=== PATIENT | female | born 1960 | race Caucasian/White ===

== ENCOUNTER 2025-03-01 23:29 | Emergency (ER) | payer MEDICAID ==
[~2025-03-01] VITALS: Ht 154.9 cm; Wt 57.0 kg
[~2025-03-01 23:29] MED LIST: ASPI-1497 MT; ATOR20TA65 MT; CARV6.2548 MT; FURO-151 MT; INSU100I24 SQ; NITR100C MT
[2025-03-01 23:40] VITALS: O2SAT 98
[2025-03-02 00:28] LABS: CREATININE 0.9 mg/dL (0.6-1.0)
[2025-03-02 00:29] LABS: UREA NITROGEN BLOOD 7 mg/dL (9-23)
[2025-03-02 00:30] LABS: ASPARTATE AMINOTRANSFERASE 30 IU/L (<34)
[2025-03-02 00:31] LABS: BILIRUBIN DIRECT 0.4 mg/dL (<=3.0); BILIRUBIN TOTAL 0.8 mg/dL (0.1-1.0); PROTEIN TOTAL 6.4 g/dL (6.0-8.3)
[2025-03-02 00:37] LABS: BASOPHILS % 0.3 % (0.0-2.0); EOSINOPHILS % 0.2 % (0.0-5.0); HEMATOCRIT. 37.1 % (36.0-48.0); HEMOGLOBIN. 11.7 g/dL (12.0-16.0); LYMPHOCYTES % 21.1 % (20.0-50.0); MEAN PLATELET VOLUME 8.2 fl (7.4-10.4); MONOCYTES % 4.1 % (2.0-8.0); NEUTROPHILS % 74.3 % (40.0-76.0); PLATELET 140 x1000/uL (130-400); RED BLOOD CELL COUNT 3.45 mill/uL (4.2-5.4); RED CELL DISTRIBUTION WIDTH 17.1 % (11.6-14.6)
[2025-03-02] MEDS: ACETAMINOPHEN 1000MG/100ML 100 ML IV NR (01:49)
[2025-03-02] MEDS: POLYETHYLENE GLYCOL 3350 (17GM) 1 DOSE PACK PO NR (03:14)
[2025-03-02] MEDS ORDERED: ACET-2708 MT (03:22)
[2025-03-02] MEDS ORDERED: POLY17PO3 MT (03:22)
[2025-03-02] MEDS: POTASSIUM CHLORIDE 8 MEQ TABLET SR PO NR (04:26)
[2025-03-02 10:05] VITALS: BP 110/75; PULSE 90; RESP 18; TEMP 36.7; O2SAT 100
== END 2025-03-02 10:06 | disposition home or self-care (01) ==
LOC: ER 23:29 → CANBEDREQ 03-02 09:48 → ER 03-02 10:06
DX: K59.00 Constipation, unspecified (principal); E87.6 Hypokalemia; E11.22 Type 2 diabetes mellitus with diabetic chronic kidney disease; E11.51 Type 2 diabetes mellitus with diabetic peripheral angiopathy without gangrene; E78.00 Pure hypercholesterolemia, unspecified; N18.6 End stage renal disease; I25.10 Atherosclerotic heart disease of native coronary artery without angina pectoris; Z99.2 Dependence on renal dialysis; Z89.429 Acquired absence of other toe(s), unspecified side; Z79.899 Other long term (current) drug therapy; Z79.82 Long term (current) use of aspirin
CPT/HCPCS: 80076; 80048; 80320; 83605; 83690; 85025; 87040; 36415; 84145; 99285; 74176; 96365; Z7610 ×2; G0480; J0131

== ENCOUNTER 2025-03-14 20:09 | Inpatient (IN) | payer MEDICAID ==
[~2025-03-14] VITALS: Ht 162.6 cm; Wt 65.8 kg
[~2025-03-14 20:09] MED LIST changes: +ACET-2708 MT; +POLY17PO3 MT
[2025-03-14 20:21] VITALS: O2SAT 99
[2025-03-14] MEDS: MORPHINE SULFATE 4 MG/ML INJ (FOR IV/IM USE) IV ONE (22:31)
[2025-03-14 23:17] LABS: BASOPHILS % 0.2 % (0.0-2.0); EOSINOPHILS % 0.2 % (0.0-5.0); HEMATOCRIT. 38.3 % (36.0-48.0); HEMOGLOBIN. 12.0 g/dL (12.0-16.0); LYMPHOCYTES % 26.9 % (20.0-50.0); MEAN PLATELET VOLUME 9.2 fl (7.4-10.4); MONOCYTES % 4.8 % (2.0-8.0); NEUTROPHILS % 67.9 % (40.0-76.0); PLATELET 98 x1000/uL (130-400); RED BLOOD CELL COUNT 3.47 mill/uL (4.2-5.4); RED CELL DISTRIBUTION WIDTH 16.6 % (11.6-14.6)
[2025-03-14 23:25] LABS: ADD RBC MORPHOLOGY YES
[2025-03-14 23:30] LABS: CREATININE 1.1 mg/dL (0.6-1.0)
[2025-03-14 23:31] LABS: UREA NITROGEN BLOOD 10 mg/dL (9-23)
[2025-03-14 23:32] LABS: ASPARTATE AMINOTRANSFERASE 18 IU/L (<34)
[2025-03-14 23:33] LABS: BILIRUBIN DIRECT 0.3 mg/dL (<=3.0); BILIRUBIN TOTAL 0.6 mg/dL (0.1-1.0); PROTEIN TOTAL 5.4 g/dL (6.0-8.3)
[2025-03-15] VITALS (11 sets, daily range): BP systolic 100–111; BP diastolic 48–73; PULSE 67–92; RESP 16–20; TEMP 36.1–36.8; O2SAT 98–100
[2025-03-15] MEDS ORDERED: ZOLPIDEM TARTRATE 5MG TABLET PO PRN
[2025-03-15] MEDS ORDERED: MAGNESIUM/ALUMINUM HYDROXIDE/SIMETHICONE 30ML UDC PO PRN
[2025-03-15] MEDS ORDERED: ACETAMINOPHEN 325MG TABLET PO PRN
[2025-03-15 00:59] LABS: PLATELET ESTIMATE SLIGHTLY DECREASED
[2025-03-15] MEDS: DEXTROSE 50% WATER 50ML SYRINGE IV ONE (02:03)
[2025-03-15] MEDS: PIPERACILLIN/TAZO 3.375G/50ML 50 ML IV SCH ×2 (03:49→19:13)
[2025-03-15] MEDS: BLOOD SUGAR DIAGNOSTIC STRIP TEST SCH (06:45)
[2025-03-15 07:09] LABS: BASOPHILS % 0.2 % (0.0-2.0); EOSINOPHILS % 0.4 % (0.0-5.0); HEMATOCRIT. 38.9 % (36.0-48.0); HEMOGLOBIN. 12.3 g/dL (12.0-16.0); LYMPHOCYTES % 33.7 % (20.0-50.0); MEAN PLATELET VOLUME 8.9 fl (7.4-10.4); MONOCYTES % 4.7 % (2.0-8.0); NEUTROPHILS % 61.0 % (40.0-76.0); PLATELET 99 x1000/uL (130-400); RED BLOOD CELL COUNT 3.54 mill/uL (4.2-5.4); RED CELL DISTRIBUTION WIDTH 16.8 % (11.6-14.6)
[2025-03-15] MEDS: INSULIN LISPRO 100 UNITS/ML SUBCUT SCH (07:15)
[2025-03-15] MEDS: PANTOPRAZOLE SODIUM 40 MG/VIAL IV SCH (08:17)
[2025-03-15] MEDS: FUROSEMIDE 40MG TABLET PO SCH (08:18)
[2025-03-15] MEDS: CARVEDILOL 6.25 MG TABLET PO SCH (08:24)
[2025-03-15] MEDS: ATORVASTATIN CALCIUM 20MG TABLET PO SCH (08:26)
[2025-03-15] MEDS ORDERED: ENOXAPARIN 40MG/0.4ML SYR SUBCUT SCH (09:00)
[2025-03-15] MEDS: FUROSEMIDE 40MG/4ML VIAL IVP SCH (11:30)
[2025-03-15] MEDS: ASPIRIN 81MG TABLET PO NR (12:15)
[2025-03-15] MEDS: NYSTATIN/TRIAMCIN CREAM 15GM TOP SCH (15:32)
[2025-03-15] MEDS: HYDROCODONE/ACETAMINOPHEN 5/325MG TABLET PO PRN (15:35)
[2025-03-15] MEDS ORDERED: PATIENT'S OWN MEDICATION PO SCH (16:00)
[2025-03-16] VITALS: BP 108/70; PULSE 94; RESP 16; TEMP 36.6; O2SAT 100
[2025-03-16 04:00] VITALS: BP 110/73; PULSE 92; RESP 16; TEMP 35.7; O2SAT 100
[2025-03-16 06:39] LABS: BASOPHILS % 0.3 % (0.0-2.0); EOSINOPHILS % 0.9 % (0.0-5.0); HEMATOCRIT. 34.9 % (36.0-48.0); HEMOGLOBIN. 11.2 g/dL (12.0-16.0); LYMPHOCYTES % 20.2 % (20.0-50.0); MEAN PLATELET VOLUME 8.4 fl (7.4-10.4); MONOCYTES % 3.7 % (2.0-8.0); NEUTROPHILS % 74.9 % (40.0-76.0); PLATELET 100 x1000/uL (130-400); RED BLOOD CELL COUNT 3.24 mill/uL (4.2-5.4); RED CELL DISTRIBUTION WIDTH 16.1 % (11.6-14.6)
[2025-03-16 08:00] VITALS: RESP 16; O2SAT 99
[2025-03-16] MEDS ORDERED: ASPIRIN 81MG TABLET PO SCH (09:00)
[2025-03-16 10:57] LABS: BASOPHILS % 0.5 % (0.0-2.0); EOSINOPHILS % 0.7 % (0.0-5.0); HEMATOCRIT. 36.4 % (36.0-48.0); HEMOGLOBIN. 11.4 g/dL (12.0-16.0); LYMPHOCYTES % 19.2 % (20.0-50.0); MEAN PLATELET VOLUME 8.3 fl (7.4-10.4); MONOCYTES % 3.5 % (2.0-8.0); NEUTROPHILS % 76.1 % (40.0-76.0); PLATELET 104 x1000/uL (130-400); RED BLOOD CELL COUNT 3.32 mill/uL (4.2-5.4); RED CELL DISTRIBUTION WIDTH 16.4 % (11.6-14.6)
[2025-03-16 11:07] LABS: INR 1.1
[2025-03-16 11:10] LABS: CREATININE 1.0 mg/dL (0.6-1.0); UREA NITROGEN BLOOD 10.0 mg/dL (9-23)
[2025-03-16 20:00] VITALS: BP 109/68; PULSE 94; RESP 18; TEMP 36.2; O2SAT 100
[2025-03-16] MEDS: ATORVASTATIN CALCIUM 20MG TABLET PO SCH (21:39)
[2025-03-17] VITALS: BP 112/72; PULSE 84; RESP 16; TEMP 36.9; O2SAT 100
[2025-03-17 04:00] VITALS: BP 106/68; PULSE 73; RESP 18; TEMP 36.1; O2SAT 99
[2025-03-17 07:22] LABS: BASOPHILS % 0.5 % (0.0-2.0); EOSINOPHILS % 1.1 % (0.0-5.0); HEMATOCRIT. 34.8 % (36.0-48.0); HEMOGLOBIN. 10.9 g/dL (12.0-16.0); LYMPHOCYTES % 23.3 % (20.0-50.0); MEAN PLATELET VOLUME 8.6 fl (7.4-10.4); MONOCYTES % 3.6 % (2.0-8.0); NEUTROPHILS % 71.5 % (40.0-76.0); PLATELET 98 x1000/uL (130-400); RED BLOOD CELL COUNT 3.19 mill/uL (4.2-5.4); RED CELL DISTRIBUTION WIDTH 16.6 % (11.6-14.6)
[2025-03-17 07:27] LABS: INR 1.1
[2025-03-17 08:00] VITALS: BP 109/67; PULSE 84; RESP 15; TEMP 36.2; O2SAT 99
[2025-03-17] MEDS: MORPHINE SULFATE 4 MG/ML INJ (FOR IV/IM USE) IV PRN (10:31)
[2025-03-17] MEDS: ONDANSETRON HCL 4MG/2ML INJ IV PRN (10:49)
[2025-03-17 12:00] VITALS: BP 86/54; PULSE 89; RESP 16; TEMP 35.8; O2SAT 99
[2025-03-17 12:18] LABS: PROTEIN BODY FLUID < 2.0 gm/dL
[2025-03-17 12:59] LABS: BODY FLUID RBC 1 /cu mm (0-2000); BODY FLUID WBC 2 /cu mm (0-200)
[2025-03-17 16:00] VITALS: BP 103/65; PULSE 100; RESP 18; TEMP 35.8; O2SAT 97
[2025-03-17 20:00] VITALS: BP 114/70; PULSE 87; RESP 16; TEMP 36.4; O2SAT 98
[2025-03-17] MEDS: ENOXAPARIN 40MG/0.4ML SYR SUBCUT SCH (21:58)
[2025-03-18] VITALS (14 sets, daily range): BP systolic 90–105; BP diastolic 59–81; PULSE 68–83; RESP 10–17; TEMP 36.2–36.7; O2SAT 97–100
[2025-03-18] MEDS ORDERED: HEPARIN 1000 UNITS/ML 10ML ONE (08:50)
[2025-03-18] MEDS ORDERED: VERAPAMIL HCL 2.5 MG/1 ML 2ML VIAL IV ONE (08:50)
[2025-03-18] MEDS ORDERED: IODIXANOL 320MG/ML 100 ML BOTTLE IV ONE (08:50)
[2025-03-18] MEDS ORDERED: LIDOCAINE HCL 1% 20ML VIAL ONE (08:50)
[2025-03-18] MEDS: ASPIRIN 81MG TABLET PO SCH (09:00)
[2025-03-18] MEDS ORDERED: FENTANYL CITRATE/PF 50MCG/ML 2ML VIAL ONE (09:17)
[2025-03-18] MEDS ORDERED: DIPHENHYDRAMINE 50MG/ML VIAL ONE (09:17)
[2025-03-18] MEDS ORDERED: MIDAZOLAM HCL 2 MG/2 ML VIAL ONE (09:17)
[2025-03-18] MEDS ORDERED: ATOR20TA65 MT (09:44)
[2025-03-18] MEDS ORDERED: CARV6.2548 MT (09:44)
[2025-03-18] MEDS ORDERED: FURO-151 MT (09:44)
[2025-03-18] MEDS ORDERED: ASPI-1497 MT (09:44)
[2025-03-18] MEDS ORDERED: POLY17PO3 MT (09:44)
[2025-03-18] MEDS ORDERED: ATROPINE SULFATE 1MG/10ML SYR IV PRN (10:30)
[2025-03-18] MEDS ORDERED: NALOXONE HCL 0.4MG/ML VIAL IV PRN (10:30)
[2025-03-18] MEDS: ALBUMIN HUMAN 12.5GM/50ML (25%) IV SCH (14:23)
[2025-03-19] VITALS: PULSE 80; RESP 20; TEMP 36.6; O2SAT 100
[2025-03-19 04:00] VITALS: BP 101/74; PULSE 75; RESP 18; TEMP 36.6; O2SAT 100
[2025-03-19 07:21] LABS: BASOPHILS % 0.2 % (0.0-2.0); EOSINOPHILS % 0.1 % (0.0-5.0); HEMATOCRIT. 34.6 % (36.0-48.0); HEMOGLOBIN. 10.8 g/dL (12.0-16.0); LYMPHOCYTES % 18.8 % (20.0-50.0); MEAN PLATELET VOLUME 9.1 fl (7.4-10.4); MONOCYTES % 2.9 % (2.0-8.0); NEUTROPHILS % 78.0 % (40.0-76.0); PLATELET 79 x1000/uL (130-400); RED BLOOD CELL COUNT 3.10 mill/uL (4.2-5.4); RED CELL DISTRIBUTION WIDTH 16.7 % (11.6-14.6)
[2025-03-19 07:29] LABS: UREA NITROGEN BLOOD 16.0 mg/dL (9-23)
[2025-03-19 07:31] LABS: ADD RBC MORPHOLOGY NO
[2025-03-19 07:48] LABS: CREATININE 1.5 mg/dL (0.6-1.0)
[2025-03-19 08:00] VITALS: BP 98/69; PULSE 76; RESP 16; TEMP 36.4; O2SAT 100
[2025-03-19] MEDS: ACETAMINOPHEN 325MG TABLET PO PRN (09:36)
[2025-03-19 12:00] VITALS: BP 91/73; PULSE 65; RESP 13; TEMP 36.6; O2SAT 100
[2025-03-19 16:00] VITALS: BP 88/69; PULSE 71; RESP 13; TEMP 36.8; O2SAT 94
[2025-03-19] MEDS ORDERED: SODIUM CHLORIDE 0.9% 500 ML IV NR (16:03)
[2025-03-19] MEDS ORDERED: MIDODRINE HCL 5MG TABLET PO SCH (16:15)
[2025-03-19] MEDS: MIDODRINE HCL 5MG TABLET PO SCH (16:18)
[2025-03-19] MEDS: CLONIDINE 0.1MG TABLET PO PRN (16:56)
[2025-03-19 20:00] VITALS: BP 96/70; PULSE 76; RESP 18; TEMP 36.7; O2SAT 97
[2025-03-20] VITALS (14 sets, daily range): BP systolic 96–138; BP diastolic 58–78; PULSE 65–82; RESP 13–21; TEMP 36.22512–37.1; O2SAT 98–99
[2025-03-20] MEDS ORDERED: MIDO10TA3 PO (13:42)
[2025-03-20 14:30] LABS: HEPATITIS A AB IGM NEGATIVE (Negative); HEPATITIS B CORE AB IGM NEGATIVE (Negative)
[2025-03-20 14:31] LABS: HEPATITIS C AB NON REACTIVE (Neg) (Negative)
[2025-03-20] MEDS: DEXTROSE 50% WATER 50ML SYRINGE IV PRN (15:07)
[2025-03-20] MEDS: LACTULOSE 20G/30ML UDC PO NR (15:10)
[2025-03-20] MEDS: HYDROCODONE/ACETAMINOPHEN 10/325MG TABLET PO PRN (15:11)
[2025-03-20] MEDS ORDERED: CEFEPIME 1GM IN DEXT 5% 50ML IV SCH (21:00)
[2025-03-21] VITALS (9 sets, daily range): BP systolic 89–122; BP diastolic 60–86; PULSE 65–76; RESP 10–20; TEMP 36.2–36.8; O2SAT 84–100
[2025-03-21] MEDS: CEFEPIME 2GM PREMIX 100ML IV SCH (00:48)
[2025-03-21] MEDS: VANCOMYCIN 1.25GM/250ML IV SCH (00:49)
[2025-03-21 06:54] LABS: CREATININE 1.7 mg/dL (0.6-1.0); UREA NITROGEN BLOOD 14.0 mg/dL (9-23)
[2025-03-21] MEDS ORDERED: VANCOMYCIN 750MG/150ML (BAXTER) IV SCH (21:00)
[2025-03-21] MEDS: CEFEPIME 1GM PREMIX 50ML IV SCH (22:23)
[2025-03-22] VITALS (16 sets, daily range): BP systolic 75–136; BP diastolic 55–94; PULSE 20–106; RESP 10–24; TEMP 36.3–36.7; O2SAT 94–100
[2025-03-22] MEDS: IOHEXOL-350 100 ML BOTTLE ONE (08:42)
[2025-03-22 18:45] LABS: BASOPHILS % 0.3 % (0.0-2.0); EOSINOPHILS % 0.1 % (0.0-5.0); HEMATOCRIT. 28.7 % (36.0-48.0); HEMOGLOBIN. 8.9 g/dL (12.0-16.0); LYMPHOCYTES % 12.5 % (20.0-50.0); MEAN PLATELET VOLUME 8.7 fl (7.4-10.4); MONOCYTES % 3.8 % (2.0-8.0); NEUTROPHILS % 83.3 % (40.0-76.0); PLATELET 109 x1000/uL (130-400); RED BLOOD CELL COUNT 2.52 mill/uL (4.2-5.4); RED CELL DISTRIBUTION WIDTH 17.4 % (11.6-14.6)
[2025-03-22 19:06] LABS: CREATININE 1.9 mg/dL (0.6-1.0); UREA NITROGEN BLOOD 19.0 mg/dL (9-23)
[2025-03-22] MEDS: VANCOMYCIN 500MG/100ML IV SCH (21:30)
[2025-03-23] VITALS (7 sets, daily range): BP systolic 103–132; BP diastolic 68–94; PULSE 72–102; RESP 16–23; TEMP 36.3–36.8; O2SAT 95–100
[2025-03-23] MEDS: EPOETIN ALFA-EPBX 4,000 UNITS/ML VIAL SUBCUT SCH (21:52)
[2025-03-24] VITALS: BP 112/73; PULSE 92; RESP 16; TEMP 36.8; O2SAT 97
[2025-03-24 04:00] VITALS: BP 110/70; PULSE 80; RESP 8; TEMP 36.3; O2SAT 95
[2025-03-24 08:00] VITALS: BP 93/57; PULSE 91; RESP 21; TEMP 36.4; O2SAT 100
[2025-03-24 12:00] VITALS: BP 110/73; PULSE 96; RESP 24; TEMP 36.5; O2SAT 100
[2025-03-24 12:08] LABS: BASOPHILS % 0.2 % (0.0-2.0); EOSINOPHILS % 0.2 % (0.0-5.0); HEMATOCRIT. 25.7 % (36.0-48.0); HEMOGLOBIN. 8.3 g/dL (12.0-16.0); LYMPHOCYTES % 14.1 % (20.0-50.0); MEAN PLATELET VOLUME 7.8 fl (7.4-10.4); MONOCYTES % 3.3 % (2.0-8.0); NEUTROPHILS % 82.2 % (40.0-76.0); PLATELET 125 x1000/uL (130-400); RED BLOOD CELL COUNT 2.36 mill/uL (4.2-5.4); RED CELL DISTRIBUTION WIDTH 16.6 % (11.6-14.6)
[2025-03-24 12:23] LABS: CREATININE 1.6 mg/dL (0.6-1.0); UREA NITROGEN BLOOD 23.0 mg/dL (9-23)
[2025-03-24] MEDS: HYDROCODONE/ACETAMINOPHEN 10/325MG TABLET PO PRN (14:43)
[2025-03-24] MEDS ORDERED: NALOXONE HCL 0.4MG/ML VIAL IV PRN (14:45)
[2025-03-24 16:00] VITALS: BP 101/67; PULSE 108; RESP 29; TEMP 36.4; O2SAT 98
[2025-03-24 20:00] VITALS: BP 106/75; PULSE 102; RESP 18; TEMP 36.6; O2SAT 100
[2025-03-24] MEDS: VANCOMYCIN 500MG/100ML IV SCH (21:50)
[2025-03-25] VITALS (57 sets, daily range): BP systolic 41–139; BP diastolic 19–127; PULSE 47–155; RESP 14–51; TEMP 36.22512–36.7; O2SAT 94–100
[2025-03-25] MEDS: ASCORBIC ACID 500 MG TABLET PO SCH (09:00)
[2025-03-25] MEDS: FOLIC ACID/VITAMIN B COMP W-C TABLET PO SCH (09:00)
[2025-03-25] MEDS: ENOXAPARIN 30MG/0.3ML SYR SUBCUT SCH (09:00)
[2025-03-25] MEDS ORDERED: ACETAMINOPHEN 650MG SUPP PR PRN (11:00)
[2025-03-25] MEDS ORDERED: ACETAMINOPHEN 650MG/20.3ML UDC NG PRN (11:00)
[2025-03-25] MEDS: NOREPINEPHRINE 32 MG in DEXT 5% WATER 218 ML IV PRN (11:36)
[2025-03-25 12:15] LABS: BG BASE EXCESS -6.0 mmol/L (-2.0-3.0); BG CARBOXYHEMOGLOBIN 0.3 % (0.5-1.5); BG DEOXYHEMOGLOBIN 0.3 % (0.0-5.0); BG FRACTION INSPIRED OXYGEN 100; BG HCO3 ACT 20.6 mmol/L (21.0-28.0); BG METHEMOGLOBIN 0.3 % (0.5-1.5); BG OXYGEN SATURATION 99.7 % (94.0-98.0); BG OXYHEMOGLOBIN 99.1 % (94.0-98.0); BG PCO2 45.6 mmHg (32.0-45.0); BG PEEP (cmH2O) 5.0 cmH2O; BG PH 7.273 (7.350-7.450); BG PO2 363.6 mmHg (83.0-108.0); BG SAMPLE SITE RIGHT BRACHIAL; BG TIDAL VOLUME(mL) 450.0 mL; BG TOTAL HEMOGLOBIN 9.3 g/dL (12.0-16.0); BG TOTAL RESPIRATORY RATE 28 b/min; BG VENT MODE VENT - AC; BG VENT RATE 18.0 set
[2025-03-25] MEDS: PIPERACILLIN/TAZO 3.375G/50ML 50 ML IV SCH (12:34)
[2025-03-25 12:37] LABS: BASOPHILS % 0.3 % (0.0-2.0); EOSINOPHILS % 0.6 % (0.0-5.0); HEMATOCRIT. 27.4 % (36.0-48.0); HEMOGLOBIN. 8.2 g/dL (12.0-16.0); LYMPHOCYTES % 20.2 % (20.0-50.0); MEAN PLATELET VOLUME 8.6 fl (7.4-10.4); MONOCYTES % 1.9 % (2.0-8.0); NEUTROPHILS % 77.0 % (40.0-76.0); PLATELET 128 x1000/uL (130-400); RED BLOOD CELL COUNT 2.36 mill/uL (4.2-5.4); RED CELL DISTRIBUTION WIDTH 17.1 % (11.6-14.6)
[2025-03-25] MEDS: FENTANYL CITRATE/PF 2,500 MCG in SODIUM CHLORIDE 0.9% 200 ML IV PRN (12:40)
[2025-03-25 12:48] LABS: UREA NITROGEN BLOOD 27 mg/dL (9-23)
[2025-03-25 12:49] LABS: ASPARTATE AMINOTRANSFERASE 91 IU/L (<34); CREATININE 2.1 mg/dL (0.6-1.0)
[2025-03-25 12:50] LABS: BILIRUBIN TOTAL 0.5 mg/dL (0.1-1.0); PHOSPHORUS 3.8 mg/dL (2.5-4.9); PROTEIN TOTAL 4.5 g/dL (6.0-8.3)
[2025-03-25] MEDS ORDERED: LIDOCAINE HCL 1% 10 MG/ML 10ML VIAL ONE (13:16)
[2025-03-25] MEDS: PHENYLEPHRINE 50MG/250ML PMX 250 ML IV PRN (17:49)
[2025-03-25] MEDS ORDERED: DEXT 10% WATER 1,000 ML IV SCH (19:45)
[2025-03-25] MEDS ORDERED: MORPHINE SULFATE/PF 1 MG/ML 100 MG in BAG 1 EACH IV PRN (20:30)
[2025-03-25] MEDS ORDERED: LORAZEPAM 2MG/ML UD SYRINGE IV PRN (20:30)
[2025-03-25] MEDS ORDERED: VANCOMYCIN 500MG PREMIX 100 ML IV SCH (21:00)
[2025-03-25] MEDS: MORPHINE SULFATE 2 MG/ML INJ (NOT FOR IM USE) IV SCH (21:19)
[2025-03-25] MEDS: MORPHINE (DRIP)100 MG in DEXT 5% WATER 100 ML IV PRN (21:22)
[2025-03-26 09:02] LABS: BG BASE EXCESS -1.7 mmol/L (-2.0-3.0); BG CARBOXYHEMOGLOBIN 1.2 % (0.5-1.5); BG DEOXYHEMOGLOBIN 3.9 % (0.0-5.0); BG FRACTION INSPIRED OXYGEN 21; BG HCO3 ACT 22.4 mmol/L (21.0-28.0); BG METHEMOGLOBIN 0.3 % (0.5-1.5); BG OXYGEN SATURATION 96.0 % (94.0-98.0); BG OXYHEMOGLOBIN 94.6 % (94.0-98.0); BG PCO2 36.8 mmHg (32.0-45.0); BG PH 7.403 (7.350-7.450); BG PO2 77.0 mmHg (83.0-108.0); BG SAMPLE SITE RIGHT BRACHIAL; BG TOTAL HEMOGLOBIN 16.8 g/dL (12.0-16.0); BG VENT MODE ROOM AIR
== END 2025-03-25 23:30 | DRG 192 ==
LOC: ER 20:09 → 5WST 23:49 → EDBEDREQ 03-15 00:07 → EDBEDREQTM 03-15 00:07 → ENRESERV 03-15 00:10 → 3WST 03-18 10:18 → CVICU 03-25 10:53
PROVIDERS: ADMIT Internal Medicine; ATTEND Internal Medicine
PROC: 5A1D70Z Performance of Urinary Filtration, Intermittent, Less than 6 Hours Per Day (ICD-10-PCS; 2025-03-15)
PROC: 0W9B3ZZ Drainage of Left Pleural Cavity, Percutaneous Approach (ICD-10-PCS; 2025-03-17)
PROC: 4A023N7 Measurement of Cardiac Sampling and Pressure, Left Heart, Percutaneous Approach (ICD-10-PCS; principal; 2025-03-18)
PROC: B211YZZ Fluoroscopy of Multiple Coronary Arteries using Other Contrast (ICD-10-PCS; 2025-03-18)
PROC: B41FYZZ Fluoroscopy of Right Lower Extremity Arteries using Other Contrast (ICD-10-PCS; 2025-03-18)
PROC: 0W993ZZ Drainage of Right Pleural Cavity, Percutaneous Approach (ICD-10-PCS; 2025-03-18)
PROC: 5A1D70Z Performance of Urinary Filtration, Intermittent, Less than 6 Hours Per Day (ICD-10-PCS; 2025-03-18)
PROC: 5A1D70Z Performance of Urinary Filtration, Intermittent, Less than 6 Hours Per Day (ICD-10-PCS; 2025-03-20)
PROC: 5A1D70Z Performance of Urinary Filtration, Intermittent, Less than 6 Hours Per Day (ICD-10-PCS; 2025-03-22)
PROC: 5A1935Z Respiratory Ventilation, Less than 24 Consecutive Hours (ICD-10-PCS; 2025-03-25)
PROC: 0BH17EZ Insertion of Endotracheal Airway into Trachea, Via Natural or Artificial Opening (ICD-10-PCS; 2025-03-25)
PROC: 5A12012 Performance of Cardiac Output, Single, Manual (ICD-10-PCS; 2025-03-25)
PROC: 02HV33Z Insertion of Infusion Device into Superior Vena Cava, Percutaneous Approach (ICD-10-PCS; 2025-03-25)
PROC: 5A1D70Z Performance of Urinary Filtration, Intermittent, Less than 6 Hours Per Day (ICD-10-PCS; 2025-03-25)
DX: I13.2 Hypertensive heart and chronic kidney disease with heart failure and with stage 5 chronic kidney disease, or end stage renal disease (principal); J69.0 Pneumonitis due to inhalation of food and vomit; J96.21 Acute and chronic respiratory failure with hypoxia; G93.40 Encephalopathy, unspecified; A41.9 Sepsis, unspecified organism; Z66 Do not resuscitate; L89.312 Pressure ulcer of right buttock, stage 2; J18.9 Pneumonia, unspecified organism; E83.51 Hypocalcemia; N18.6 End stage renal disease; D69.6 Thrombocytopenia, unspecified; Z99.2 Dependence on renal dialysis; E11.52 Type 2 diabetes mellitus with diabetic peripheral angiopathy with gangrene; I46.9 Cardiac arrest, cause unspecified; J90 Pleural effusion, not elsewhere classified; I50.23 Acute on chronic systolic (congestive) heart failure; D64.9 Anemia, unspecified; I47.20 Ventricular tachycardia, unspecified; I42.0 Dilated cardiomyopathy; E87.1 Hypo-osmolality and hyponatremia; E11.22 Type 2 diabetes mellitus with diabetic chronic kidney disease; K59.00 Constipation, unspecified; L89.156 Pressure-induced deep tissue damage of sacral region; L89.896 Pressure-induced deep tissue damage of other site; L22 Diaper dermatitis; N20.0 Calculus of kidney; R32 Unspecified urinary incontinence; E78.00 Pure hypercholesterolemia, unspecified; I25.110 Atherosclerotic heart disease of native coronary artery with unstable angina pectoris; M48.54XA Collapsed vertebra, not elsewhere classified, thoracic region, initial encounter for fracture; L97.519 Non-pressure chronic ulcer of other part of right foot with unspecified severity; Z99.81 Dependence on supplemental oxygen; Z89.512 Acquired absence of left leg below knee; Z89.511 Acquired absence of right leg below knee; Z98.61 Coronary angioplasty status; Z90.49 Acquired absence of other specified parts of digestive tract; Z86.73 Personal history of transient ischemic attack (TIA), and cerebral infarction without residual deficits
CPT/HCPCS: 31500; 31720; 32555; 36415; 36573; 36600; 71045; 73620; 74176; 75635; 76604; 80048; 80053; 80076; 80202; 82040; 82375; 82805; 82962; 83615; 83735; 84100; 84443; 85025; 86705; 86709; 87070; 87340; 88108; 88312; 90935; 93005; 93306; 93458; 93923; 93970; 94002; 94003; 94070; 94664; 97162; 97166; 99285; A4606; C1725; C1769; C1887; C1893; J0692; J0885; J1200; J1644; J1650; J1815; J1938; J2003; J2250; J2270; J2371; J2405; J2470; J2543; J3010; J3373; J3490; J7050; P9047; Q9967